=== PATIENT | female | born 1970 | race Caucasian/White ===

== ENCOUNTER 2022-12-22 08:25 | Emergency (ER) | payer OTHER ==
[~2022-12-22] VITALS: Ht 162.6 cm; Wt 159.1 kg
[2022-12-22 08:36] VITALS: BP 222/110
[2022-12-22] MEDS ORDERED: LIDOcaine 5% patch TP STA (10:42)
[2022-12-22] MEDS ORDERED: ketorolac trometh inj. 60 MG/2 ML VIAL IM ONE (10:45)
[2022-12-22] MEDS ORDERED: PRED20TA PO (10:47)
[2022-12-22] MEDS ORDERED: CYCL-1 PO (10:47)
[2022-12-22] MEDS ORDERED: IBUP-1986 PO (10:47)
[2022-12-22] MEDS ORDERED: OXYC-145 PO (20:22)
== END 2022-12-22 11:23 | disposition home or self-care (01) ==
LOC: ER 08:25
DX: M54.50 Low back pain, unspecified (principal); M25.552 Pain in left hip; Z79.899 Other long term (current) drug therapy
CPT/HCPCS: 96372; 99283; J1885

== ENCOUNTER 2022-12-22 18:12 | Emergency (ER) | payer OTHER ==
[~2022-12-22] VITALS: Ht 162.6 cm; Wt 159.1 kg
[~2022-12-22 18:12] MED LIST: CYCL-1 PO; IBUP-1986 PO; PRED20TA PO
[2022-12-22 18:17] VITALS: BP 237/113
[2022-12-22] MEDS ORDERED: ondansetron 4mg rapidly disintigrating tab PO ONE (19:25)
[2022-12-22] MEDS ORDERED: morphine 4 MG/ML inj SYRINge IM ONE (19:25)
[2022-12-22] MEDS ORDERED: OXYC-145 PO (20:22)
== END 2022-12-22 20:36 | disposition home or self-care (01) ==
LOC: ER 18:12
DX: M54.32 Sciatica, left side (principal); Z79.899 Other long term (current) drug therapy
CPT/HCPCS: 96372; 99283; J2270